=== PATIENT | female | born 1960 | race Caucasian/White ===

== ENCOUNTER 2024-07-05 16:40 | Inpatient (IN) | payer BC, SELFPAY ==
[2024-07-05] VITALS (38 sets, daily range): BP systolic 121–163; BP diastolic 73–99; PULSE 100–124; RESP 17–28; TEMP 35.8–36.9; O2SAT 96–100; BMI 26.3
--- NOTE | ~2024-07-05 | CT_ITS ---
EXAMINATION: CT brain wo con DATE: 07/05/2024 18:01 INDICATION: Altered mental status. TECHNIQUE: Computed tomography (CT) of the head was performed without intravenous contrast. The mA wa s adjusted according to patient size. Iterative reconstruction technique was employed. The dose-lengt h product was 681.00 mGy-cm. COMPARISON: None FINDINGS: There is no intracranial hemorrhage, acute infarction, or abnormal intracranial mass lesion . The ventricles are normal in size. The orbits are normal. The paranasal sinuses are clear. The mast oid air cells are normal. There is cerumen in the external auditory canals. IMPRESSION: 1. Normal brain. Reviewed, dictated and finalized at location A. IMPRESSION: 1. Normal brain.
--- NOTE | ~2024-07-05 | XR_ITS ---
EXAMINATION: XR wrist RT min 3V DATE: 07/05/2024 17:26 INDICATION: Right wrist deformity. TECHNIQUE: 3 views of right wrist were obtained. COMPARISON: None. FINDINGS: There is an old healed fracture of distal radius with malunion. There is an old fracture of ulnar styloid with nonunion. No acute fracture. There is mild osteoarthritis of triscaphe joint and severe osteoarthritis of first carpometacarpal joint. IMPRESSION: 1. No acute fracture. 2. Old healed fracture of distal radius with malunion. 3. Polyarticular osteoarthritis. Reviewed, dictated and finalized at location A.
--- NOTE | ~2024-07-05 | CT_ITS ---
EXAMINATION: CT chest abdomen pelvis wo con DATE: 07/05/2024 20:30 INDICATION: Sepsis. TECHNIQUE: Computed tomography (CT) of the chest, abdomen, and pelvis was performed without intraveno us contrast. Automated exposure control and iterative reconstruction technique were employed. The dos e-length product was 625.49 mGy-cm. COMPARISON: None FINDINGS: CHEST CT: The lungs demonstrate mild atelectasis. There are trace pleural effusions. The heart size is normal. There are coronary artery calcifications. No pericardial effusion. There are bilateral breast implant s. There is mild thoracic spondylosis. ABDOMEN/PELVIS CT: The liver is normal. There are changes of cholecystectomy. There are changes of gastric bypass proced ure. The spleen, pancreas, adrenal glands, and kidneys are normal. There are no dilated loops of nneka l. The appendix is normal. There is a Arriola catheter in expected position. There are no pathologicall y enlarged lymph nodes. There is no free intraperitoneal fluid there is severe lumbar spondylosis.. IMPRESSION: 1. No source of infection identified. Reviewed, dictated and finalized at location A.
--- NOTE | ~2024-07-05 | MR_ITS ---
EXAMINATION: MR MRCP wo/w con/w 3D wo ind DATE: 07/11/2024 11:26 INDICATION: Elevated lipase TECHNIQUE: Magnetic resonance imaging (MRI) of the abdomen was performed without and with 15 mL Multi carline intravenous contrast. Sequences included coronal T2-weighted SS-FSE, coronal T2-weighted FS SS- FSE, coronal T2-weighted FS FIESTA, axial T2-weighted FS FIESTA, axial T2-weighted FIESTA, sagittal T 2-weighted SS-FSE, axial T1-weighted dual-echo FSPGR, axial T2-weighted SS-FSE, axial T1-weighted LAV A, axial T2-weighted STIR FSE. Thick-slab T2-weighted FRFSE-XL images were obtained for magnetic reso nance cholangiopancreatography (MRCP). Rotating maximum intensity projection 3-D reconstructions of t he volumetric data were created by the technologist. Postcontrast sequences included a time course of axial T1-weighted LAVA. COMPARISON: CT dated 07/05/2024 FINDINGS: ABDOMEN MRI: Heart size is normal. No pericardial or pleural effusion. Bilateral breast implants. A couple small T 2 hyperintense nonenhancing cysts along the posterior margin of the spleen the larger measuring 9 mm. Magnetic field artifact such with cholecystectomy clips the gallbladder fossa. Liver is normal. Panc reas, bilateral adrenal glands are normal. There are bilateral T2 hyperintense nonenhancing renal cys ts the largest on the right measuring 1.6 cm. There is a 3.5 x 2.9 cm predominantly solid and heterog eneously enhancing mass at the upper pole of the right kidney consistent with renal cell carcinoma. V isualized portion of the bowels are unremarkable. No pathologically enlarged abdominal or or upper pe lvic lymphadenopathy. Mild thoracolumbar dextrocurvature with mild thoracic and moderate lumbar spond ylosis. T1 hyperintense fat saturating hemangiomas in the T7, T11 and L2 vertebral bodies. ABDOMEN MRCP: Common bile duct is dilated to 13 mm proximally tapering gradually throughout the more distal duct wi th no evident choledocholithiasis in this likely represents sequela prior cholecystectomy. There are few small dilated side branches along the normal caliber main pancreatic duct which likely represents sequela of chronic pancreatitis. IMPRESSION: 1. 3.5 cm heterogeneously enhancing mass at the upper pole the right kidney consistent with renal grant l carcinoma. 2. A few small dilated pancreatic ductal side branches with otherwise normal-appearing pancreas likel y sequela of chronic pancreatitis. No pancreatic or peripancreatic edema to suggest acute pancreatiti s. 3. Mild dilation of the common bile duct without evident choledocholithiasis or obstructing masses li balaji related to prior cholecystectomy. Reviewed, dictated and finalized at location B. IMPRESSION: 1. 3.5 cm heterogeneously enhancing mass at the upper pole the right kidney con sistent with renal cell carcinoma. 2. A few small dilated pancreatic ductal side branches with otherwise normal-ap pearing pancreas likely sequela of chronic pancreatitis. No pancreatic or perip ancreatic edema to suggest acute pancreatitis. 3. Mild dilation of the common bile duct without evident choledocholithiasis or obstructing masses likely related to prior cholecystectomy.
--- NOTE | ~2024-07-05 | XR_ITS ---
EXAMINATION: XR chest 1V portable DATE: 07/05/2024 17:26 INDICATION: Altered mental status. TECHNIQUE: A single frontal view of the chest was obtained. COMPARISON: None. FINDINGS: There is mild atelectasis in left midlung zone. No pleural effusion or pneumothorax. The he art size is normal. IMPRESSION: 1. Mild atelectasis in left midlung zone. Reviewed, dictated and finalized at location A.
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
--- NOTE | 2024-07-05 17:06 | ECG_ITS ---
Test Date: 2024-07-05 17:48:21 Measurements Intervals [place] Rate: 94 P: 69 IN: 141 QRS: 38 QRSD: 97 T: 223 QT: 305 QTc: 383 Interpretive Statements SINUS RHYTHM WITH MARKED SINUS ARRHYTHMIA VENTRICULAR PREMATURE COMPLEX POSSIBLE LEFT ATRIAL ENLARGEMENT ST-T WAVE ABNORMALITY IN INF/LAT LEADS- CONSIDER ISCHEMIA BASELINE ARTIFACT- I, III, AVR, AVL, AVF, V3-V6 ABNORMAL ECG No previous ECG available for comparison Electronically Signed On 07-05-2024 19:25:45 CDT by Marcel Arteaga D.O.
--- NOTE | 2024-07-05 17:06 | PC.NURSE ---
temporal pulse ox. applied due to cyanotic fingers and patient is 100% on RA with this
[2024-07-05 17:18] LABS: Glucose Point of Care 116 mg/dl (65-105)
[2024-07-05 17:35] LABS: Add Urine Microscopic? YES; Appearance Urine Turbid (Clear); Bacteria Urine 4+ /hpf; Bilirubin Urine Negative (Negative); Blood Urine 2+ (Negative); Color Urine Yellow (Yellow); Glucose Urine UA Negative (Negative); Ketones Urine Negative (Negative); Leukocyte Esterase Ur 3+ LEU/UL (Negative); Need Manual Microscopic Reviewed; Nitrate Urine Negative (Negative); Non Pathogenic Casts >20; Protein Urine 1+ mg/dL (Negative); RBC Urine 0-2 /hpf (0-2); Squamous Epithelial Cell Urine Occasional /hpf (Few); WBC Urine >100 /hpf (0-3)
--- NOTE | 2024-07-05 17:41 | ED.AMS ---
HPI - Altered Mental Status General Chief Complaint: Altered Mental Status <SANGITA Villanueva Last Filed: 07/06/24 02:44> Stated Complaint: altered LOC <SANGITA Villanueva Last Filed: 07/06/24 02:44> Time Seen by Provider: 07/05/24 17:06 <SANGITA Villanueva Last Filed: 07/06/24 02:44> Source: patient and EMS <SANGITA Villanueva Last Filed: 07/06/24 02:44> Mode of arrival: EMS <SANGITA Villanueva Last Filed: 07/06/24 02:44> Limitations: altered mental status <SANGITA Villanueva Last Filed: 07/06/24 02:44> History of Present Illness HPI narrative: This is a 64 year old female that presents to the ER for altered mental status. Patient arrives via EMS. Reportedly family member called out of concern. Unknown last well. Patient sitting on the end of her bed confused upon EMS arrival. Soiled in urine and feces. Blood sugar in the 30s. Blood sugar corrected without relief of confusion. Patient able to follow some commands and nod yes and no. Reportedly is usually A&O x 4. <SANGITA Villanueva Last Filed: 07/06/24 02:44> Related Data Home Medications: Home Medications Medication Instructions Recorded Confirmed amlodipine 10 mg tablet 10 mg PO DAILY 03/14/24 07/05/24 ergocalciferol (vitamin D2) 1,250 1,250 mcg PO DAILY 03/14/24 07/05/24 mcg (50,000 unit) capsule gabapentin 300 mg capsule 300 mg PO TID 07/05/24 07/05/24 meloxicam 15 mg tablet 15 mg PO DAILY 07/05/24 07/05/24 metoprolol succinate 100 mg 100 mg PO DAILY 07/05/24 07/05/24 tablet,extended release 24 hr mirtazapine 45 mg tablet 45 mg PO DAILY 07/05/24 07/05/24 topiramate 50 mg tablet 50 mg PO BID 07/05/24 07/05/24 tramadol 50 mg tablet 100 mg PO TID PRN Pain 07/05/24 07/05/24 <Vanessa Sheldon PA-C - Last Filed: 07/06/24 02:44> Allergies/Adverse Reactions: Allergies Allergy/AdvReac Type Severity Reaction Status Date / Time pregabalin [From Lyrica] AdvReac Mild Double Verified 07/06/24 04:59 vision Sulfa (Sulfonamide AdvReac Mild Shortness Verified 07/06/24 04:59 Antibiotics) of breath <Vanessa Sheldon PA-C - Last Filed: 07/06/24 02:44> Review of Systems Review of Systems: ROS unobtainable: Yes unobtainable due to mental status <SANGITA Villanueva Last Filed: 07/06/24 02:44> [facility] Past Medical History Medical History: Medical History (Updated 07/06/24 @ 05:00 by Amber House DO) Chronic low back pain Chronic prescription opiate use Lumbar degenerative disc disease Peripheral neuropathy <Vanessa Sheldon PA-C - Last Filed: 07/06/24 02:44> Surgical History Surgical History: Surgical History (Updated 07/06/24 @ 04:31 by Amber House DO) History of augmentation of both breasts History of laparoscopic cholecystectomy Hx of branchial cleft cyst left side, surgery age 18 Hx of gastric bypass (~2002) Hx of lumbar discectomy 2006 with post op staph infection Labral tear of right hip joint surgical repair Status post abdominoplasty ? Circumferential body lift Trochanteric bursitis of right hip bursa removed in 2007 <Vanessa Sheldon PA-C - Last Filed: 07/06/24 02:44> Family History Family History: Family History (Updated 07/06/24 @ 05:01 by Amber House DO) Father Hypertension AA (alcohol abuse) Mother Diabetes mellitus Carcinoma of colon 70 Breast cancer 60s Sibling Rheumatoid arthritis <SANGITA Villanueva Last Filed: 07/06/24 02:44> Social History Social History: Social History (Updated 07/06/24 @ 04:49 by Amber House DO) Social History: The patient is a retired are in. She worked at [employer] in [place]. She reports that she retired after she had a fall resulting in a wrist fracture. She has been since May 2024. She moved in with her mother and her stepfather to help with her mother's care January or March 2024. She does not have any chi
[2024-07-05 17:52] LABS: Influenza A QL RT-PCR Negative (Negative); Influenza B QL RT-PCR Negative (Negative); RSV RNA, RT-PCR Negative (Negative); SARS-CoV-2 RNA PCR Negative (Negative)
[2024-07-05 18:37] LABS: Acetaminophen < 10 ug/mL (10-30); Ethanol < 10 mg/dL (<10); Salicylate < 1.0 mg/dL (2-20)
[2024-07-05 18:37] LABS: Glucose Point of Care 125 mg/dl (65-105)
[2024-07-05 18:38] LABS: Alanine Aminotransferase 68 U/L (6-35); Albumin Level 4.5 g/dL (3.5-5.1); Alkaline Phosphatase 194 U/L (38-126); Anion Gap 23 mmol/L (4-12); Aspartate Amino Transferase 43 U/L (14-36); Bilirubin,Total 0.7 mg/dL (0.2-1.3); Calcium 9.7 mg/dL (8.4-10.2); Carbon Dioxide 10 mmol/L (22-30); Chloride 119 mmol/L (98-107); Creatine Kinase 872 U/L (30-135); Estimated Glomerular Filt Rate 13; Glucose 139 mg/dL (65-110); Potassium 4.5 mmol/L (3.4-5.0); Sodium 152 mmol/L (137-145)
[2024-07-05 18:45] LABS: CRP 7.3 mg/dL (<1.0)
[2024-07-05 18:56] LABS: Troponin I < 0.012 ng/mL (0.000-0.034)
[2024-07-05] MEDS: SODIUM CHLORIDE 0.9% IV 2,300 ML/1,000 ML BAG 999 ML IV CONT ×3 (19:10→19:55)
[2024-07-05 19:17] LABS: Blood Urea Nitrogen 214 mg/dL (7-17)
--- NOTE | 2024-07-05 19:18 | PC.NURSE ---
phlebotomy is currently in patient's room attempting to get blood after request from ED charge nurse. 4 RN's in ED as well as ED charge nurse attempted to get blood work with no success. patient has had warmed fluids infusing and bear hugger to warm patient and assist with blood draw.
[2024-07-05 19:41] LABS: Amphetamine Screen Urine Negative (Negative); Barbiturate Screen Urine Negative (Negative); Benzodiazepines Screen Urine Negative (Negative); Cannabinoid Screen Urine Negative (Negative); Cocaine Screen Urine Negative (Negative); Methadone Screen Urine Negative (Negative); Opiate Screen Urine Positive (Negative); Phencyclidine Screen Urine Negative (Negative)
[2024-07-05 19:49] LABS: Basophils Percent Auto 0.2 % (0.2-1.2); Eosinophils Absolute Auto 0.1 K/mm3 (0-0.3); Eosinophils Percent Auto 0.4 % (0-4.4); Hematocrit 43.1 % (37.0-47.0); Hemoglobin 14.2 g/dL (12.0-15.0); Immature Granulocyte Absolute 0.17 K/mm3 (0.00-0.031); Lymphocytes Absolute Auto 1.05 K/mm3 (0.9-3.2); Lymphocytes Percent Auto 6.5 % (18.3-44.2); Mean Corpuscular HGB Conc 32.9 g/dl (32-36); Mean Corpuscular Hemoglobin 27.6 pg (26-34); Mean Corpuscular Volume 83.7 fl (80-100); Monocytes Absolute Auto 1.5 K/mm3 (0.1-0.6); Monocytes Percent Auto 9.4 % (2.6-8.5); Neutrophils Absolute Auto 13.4 K/mm3 (1.3-6.7); Neutrophils Percent Auto 82.5 % (45.5-73.1); Nucleated Red Blood Cells Perc 0.1 % (0.0-0.2); Platelet Count Result 364 k/mm3 (150-375); Red Blood Count 5.15 M/mm3 (4.2-5.4); Red Cell Distribution Width 16.9 % (11.5-14.5); White Blood Count 16.3 K/mm3 (4.5-10.0)
[2024-07-05 19:49] LABS: Lipase 2946 U/L (23-300)
[2024-07-05] MEDS: CEFEPIME 2 GM/NS 50 ML 2 GM/50 ML BAG IVPB (19:49)
[2024-07-05 20:00] LABS: INR 1.2; Lactic Acid Reflex 1.6 mmol/L (0.7-2.0); Partial Thromboplastin Time 25.3 Seconds (22.3-36.8); Prothrombin Time 15.5 Seconds (11.1-14.7)
[2024-07-05 20:49] LABS: Thyroid Stimulating Hormone Reflex < 0.015 uIU/mL (0.465-4.68)
--- NOTE | 2024-07-05 20:51 | PC.NURSE ---
patient received a total of 2,300ml of NS 0.9% per sepsis protocol
--- NOTE | 2024-07-05 21:12 | PC.NURSE ---
replaced depends and did debbie-care for patient. they have not had a BM since arrival to ED for stool specimen.
[2024-07-05 22:03] LABS: Free T4 Free Thyroxine Reflex 1.79 ng/dL (0.78-2.19)
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
[2024-07-05 22:53] LABS: Total Triiodothyronine (T3) 0.92 NG/ML (0.97-1.69)
[2024-07-05 22:55] LABS: Glucose Point of Care 109 mg/dl (65-105)
--- NOTE | 2024-07-05 22:55 | PC.NURSE ---
patient had BM in depends but not enough to collect stool specimen. did debbie-care on patient, with skin concern noted to coccyx. it appears as stage one wound that is non-blanchable. removed bear-hugger due to patients core temp. being 98.0
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
[2024-07-05] MEDS: LACTATED RINGERS 1,000 ML 999 ML IV CONT (23:11)
[2024-07-05] MEDS: SODIUM BICARBONATE 8.4% 150 MEQ in DEXTROSE 5% 1,000 ML 950 ML IV CONT (23:19)
--- NOTE | 2024-07-05 23:46 | PC.NURSE ---
Patient confirmed home medication list as documented from external medication records; patient did not confirm dosage, but was able to confirm frequency of identified medications from external medication record.
[2024-07-06] VITALS (18 sets, daily range): BP systolic 150–154; BP diastolic 74–92; PULSE 74–117; RESP 18–22; TEMP 36.5–36.6; O2SAT 96–100; BMI 26.3
[2024-07-06 00:10] LABS: MRSA (PCR) NOT DETECTED (NOT DETECTE)
--- NOTE | 2024-07-06 01:19 | ADMGEN ---
This patient, Violeta Gomez, was admitted to IMU Room 205-02. Patient/family oriented to hospital policies and general routines including ID bracelet, bed and alarms, visiting hours, pain management, procedures, bathroom and other care routines, personal items, smoking policy, room service/diet, and visiting hours. Information on how to activate the Rapid Response Team has been discussed. Patient/Family are encouraged to report perceived risks to care and to ask questions if they do not understand what they are told or what they should do.
[2024-07-06 05:17] LABS: Hematocrit 40.5 % (37.0-47.0); Hemoglobin 12.9 g/dL (12.0-15.0); Mean Corpuscular HGB Conc 31.9 g/dl (32-36); Mean Corpuscular Hemoglobin 27.4 pg (26-34); Mean Corpuscular Volume 86.2 fl (80-100); Mean Platelet Volume 11.9 fl (7.4-10.4); Platelet Count Result 310 k/mm3 (150-375); Red Cell Distribution Width 16.9 % (11.5-14.5); White Blood Count 17.9 K/mm3 (4.5-10.0)
[2024-07-06 05:26] LABS: Hemoglobin A1C 5.6 % (<5.7)
[2024-07-06 05:37] LABS: Alanine Aminotransferase 49 U/L (6-35); Albumin Level 3.6 g/dL (3.5-5.1); Alkaline Phosphatase 149 U/L (38-126); Anion Gap 17 mmol/L (4-12); Aspartate Amino Transferase 32 U/L (14-36); Bilirubin,Total 0.7 mg/dL (0.2-1.3); Calcium 9.1 mg/dL (8.4-10.2); Carbon Dioxide 15 mmol/L (22-30); Chloride 125 mmol/L (98-107); Creatine Kinase 618 U/L (30-135); Estimated CRCL calculation 20 ml/min; Estimated Glomerular Filt Rate 20; Glucose 125 mg/dL (65-110); Magnesium 3.1 mg/dL (1.6-2.3); Phosphorus 4.8 mg/dL (2.5-4.5); Potassium 3.9 mmol/L (3.4-5.0); Sodium 157 mmol/L (137-145)
[2024-07-06 05:54] LABS: Blood Urea Nitrogen 176 mg/dL (7-17); Lipase 6584 U/L (23-300)
[2024-07-06 06:35] LABS: Hepatitis B Surface Antigen Negative (Negative)
[2024-07-06 06:40] LABS: HAV RESULT Negative (Negative); Hepatitis B Core IgM Result Negative (Negative)
[2024-07-06 06:52] LABS: Hepatitis C Virus Antibody Negative (Negative)
[2024-07-06] MEDS: SODIUM BICARBONATE 8.4% 150 MEQ in DEXTROSE 5% 1,000 ML 950 ML IV CONT ×2 (07:00→14:32)
[2024-07-06] MEDS: HEPARIN SODIUM 5,000 UNITS/ML VIAL 5000 UNITS SUB-Q ×2 (09:15→20:26)
[2024-07-06] MEDS: PANTOPRAZOLE SODIUM IV 40 MG VIAL IV PUSH (09:15)
[2024-07-06] MEDS: METOPROLOL SUCCINATE EXT REL 100 MG TABCR PO (09:15)
[2024-07-06] MEDS: SILVER SULFADIAZINE 1% CR 400 GM JAR (*BKC) 1 APPLIC TOPICAL ×2 (09:16→20:26)
[2024-07-06] MEDS: TOPIRAMATE 25 MG TABLET 50 MG PO ×2 (09:16→20:26)
[2024-07-06] MEDS: HYDROcodone/acetaminophen (*CRX) 5-325 MG TABLET 1 TAB PO ×2 (09:27→20:28)
[2024-07-06 12:35] LABS: Creatinine Urine 42.1 mg/dL; Potassium Urine Random 11.6 meq/L; Sodium Urine Random 42 meq/L
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
[2024-07-06 14:05] LABS: Toxigenic C. Diff NEGATIVE (NEGATIVE)
--- NOTE | 2024-07-06 14:35 | PM.CNNEP ---
Assessment and Plan Assessment and plan (1) POP (acute kidney injury): Code(s): N17.9 - Acute kidney failure, unspecified Status: Acute Assessment and Plan: presumed normal kidney function/creatinine at baseline creatinine on admission was 3.6...down to 2.4mg/dl this AM CT imaging without evidence of obstructive uropathy history seems consistent with volume depletion/dehydration hold NSAIDs, EMILY-I and diuretics continue IVF hydration follow serial labs and UOP (2) Hypernatremia: Code(s): E87.0 - Hyperosmolality and hypernatremia Status: Acute Assessment and Plan: likely due to significant free water deficit encourage free water intake as tolerated depending on trend of labs, may need to adjust IVFs to compensate follow trend of repeat sodium levels (3) Sepsis: Qualifiers: Sepsis type: sepsis due to unspecified organism Sepsis acute organ dysfunction status: with acute organ dysfunction Severe sepsis acute organ dysfunction type: acute renal failure Acute renal failure type: unspecified Severe sepsis shock status: without septic shock Qualified Code(s): A41.9 - Sepsis, unspecified organism; R65.20 - Severe sepsis without septic shock; N17.9 - Acute kidney failure, unspecified Code(s): A41.9 - Sepsis, unspecified organism Status: Acute Assessment and Plan: as manifested by altered mntal status, tachycardia, tachypnea, leukocytosis and POP on presentation source not clear follow culture data follow hemodynamics on empiric antibiotics (4) Metabolic acidosis: Code(s): E87.20 - Acidosis, unspecified Status: Acute Assessment and Plan: most likely due to POP/ARF on bicarb IVFs to compensate follow trend of CO2 levels (5) Altered mental status: Code(s): R41.82 - Altered mental status, unspecified Status: Acute Assessment and Plan: likely secondary to a combination of severe uremia, medication effect exacerbated by acute renal failure, hypoglycemia and sepsis continues current treatment follow mentation (6) Elevated lipase: Code(s): R74.8 - Abnormal levels of other serum enzymes Status: Acute Assessment and Plan: as noted in the ER however, no evidence of pancreatitis by CT scan follow trend with IVFs I will continue to follow the patient with you while she remains hospitalized and make further recommendations as deemed necessary. Thank you for allowing me to participate in the care of this patient. History of Present Illness Reason for Consult Consult date: 07/06/24 Reason for consult: acute renal failure and hypernatremia Chief Complaint Chief complaint: Acute Kidney Injury/Acute UTI/[place] Encephalopathy History of Present Illness Narrative: A great deal the information that I have obtained is from review of the electronic medical record as well as discussion with the physician/ nurses involved in the patient's care as the patient has intermittent confusion making details of the events that led to her presentation to the emergency room and subsequent admission difficult for her to elaborate. The patient is a 64-year-old female with a past medical history as outlined below who presented to [facility] Emergency room via EMS for further evaluation of altered mental status. Apparently, the patient has been weak for last several days. Her family apparently called her outpatient r programmer to inform them that she would not be coming for her outpatient screening colonoscopy because of the severity of her weakness. They encouraged the family to call EMS given the description of how profound her fatigue/ weakness was. EMS was called and on their arrival, it was noted that the patient was somewhat confused in conjunction with her profound weakness. She was found to be hypoglycemic with a glucose of 30 and received an amp of D 10 with improvement in h
--- NOTE | 2024-07-06 14:35 | P.CONNP_ITS ---
Assessment and Plan Assessment and plan (1) POP (acute kidney injury): Code(s): N17.9 - Acute kidney failure, unspecified Status: Acute Assessment and Plan: * presumed normal kidney function/creatinine at baseline * creatinine on admission was 3.6...down to 2.4mg/dl this AM * CT imaging without evidence of obstructive uropathy * history seems consistent with volume depletion/dehydration * hold NSAIDs, EMILY-I and diuretics * continue IVF hydration * follow serial labs and UOP (2) Hypernatremia: Code(s): E87.0 - Hyperosmolality and hypernatremia Status: Acute Assessment and Plan: * likely due to significant free water deficit * encourage free water intake as tolerated * depending on trend of labs, may need to adjust IVFs to compensate * follow trend of repeat sodium levels (3) Sepsis: Qualifiers: Sepsis type: sepsis due to unspecified organism Sepsis acute organ dysfunction status: with acute organ dysfunction Severe sepsis acute organ dysfunction type: acute renal failure Acute renal failure type: unspecified Severe sepsis shock status: without septic shock Qualified Code(s): A41.9 - Sepsis, unspecified organism; R65.20 - Severe sepsis without septic shock; N17.9 - Acute kidney failure, unspecified Code(s): A41.9 - Sepsis, unspecified organism Status: Acute Assessment and Plan: * as manifested by altered mntal status, tachycardia, tachypnea, leukocytosis and POP on presentation * source not clear * follow culture data * follow hemodynamics * on empiric antibiotics (4) Metabolic acidosis: Code(s): E87.20 - Acidosis, unspecified Status: Acute Assessment and Plan: * most likely due to POP/ARF * on bicarb IVFs to compensate * follow trend of CO2 levels (5) Altered mental status: Code(s): R41.82 - Altered mental status, unspecified Status: Acute Assessment and Plan: * likely secondary to a combination of severe uremia, medication effect exacerbated by acute renal failure, hypoglycemia and sepsis * continues current treatment * follow mentation (6) Elevated lipase: Code(s): R74.8 - Abnormal levels of other serum enzymes Status: Acute Assessment and Plan: * as noted in the ER * however, no evidence of pancreatitis by CT scan * follow trend with IVFs I will continue to follow the patient with you while she remains hospitalized and make further recommendations as deemed necessary. Thank you for allowing me to participate in the care of this patient. History of Present Illness Reason for Consult Consult date: 07/06/24 Reason for consult: acute renal failure and hypernatremia Chief Complaint Chief complaint: Acute Kidney Injury/Acute UTI/[place] Encephalopathy History of Present Illness Narrative: A great deal the information that I have obtained is from review of the electronic medical record as well as discussion with the physician/ nurses involved in the patient's care as the patient has intermittent confusion making details of the events that led to her presentation to the emergency room and subsequent admission difficult for her to elaborate. The patient is a 64-year-old female with a past medical history as outlined below who presented to [facility] Emergency room via EMS for further evaluation of altered mental status. Apparently, the patient has been weak for last several days. Her family apparently called her outpatient military technician to inform them that she would not be coming for her outpa
[2024-07-06 14:51] LABS: Anion Gap 10 mmol/L (4-12); Calcium 8.8 mg/dL (8.4-10.2); Carbon Dioxide 26 mmol/L (22-30); Chloride 119 mmol/L (98-107); Estimated CRCL calculation 26 ml/min; Estimated Glomerular Filt Rate 29; Glucose 155 mg/dL (65-110); Hemoglobin A1C 5.7 % (<5.7); Potassium 3.3 mmol/L (3.4-5.0); Sodium 155 mmol/L (137-145)
[2024-07-06 14:53] LABS: Blood Urea Nitrogen 140 mg/dL (7-17)
[2024-07-06 17:07] LABS: Glucose Point of Care 146 mg/dl (65-105)
[2024-07-06 20:00] LABS: Glucose Point of Care 134 mg/dl (65-105)
[2024-07-06 20:11] LABS: Anion Gap 9 mmol/L (4-12); Calcium 8.8 mg/dL (8.4-10.2); Carbon Dioxide 30 mmol/L (22-30); Chloride 117 mmol/L (98-107); Estimated CRCL calculation 30 ml/min; Estimated Glomerular Filt Rate 33; Glucose 136 mg/dL (65-110); Potassium 3.4 mmol/L (3.4-5.0); Sodium 156 mmol/L (137-145)
[2024-07-06 20:12] LABS: Blood Urea Nitrogen 124 mg/dL (7-17)
[2024-07-07] VITALS (19 sets, daily range): BP systolic 154–172; BP diastolic 80–99; PULSE 72–99; RESP 16–24; TEMP 36.4–36.7; O2SAT 94–100
[2024-07-07 05:56] LABS: Basophils Absolute Auto 0.1 K/mm3 (0.0-0.1); Basophils Percent Auto 0.3 % (0.2-1.2); Eosinophils Absolute Auto 0.3 K/mm3 (0-0.3); Eosinophils Percent Auto 1.8 % (0-4.4); Hematocrit 37.3 % (37.0-47.0); Immature Granulocyte Absolute 0.27 K/mm3 (0.00-0.031); Immature Granulocyte Percent A 1.8 % (0-0.5); Lymphocytes Percent Auto 17.8 % (18.3-44.2); Mean Corpuscular HGB Conc 32.2 g/dl (32-36); Mean Corpuscular Hemoglobin 27.8 pg (26-34); Mean Corpuscular Volume 86.5 fl (80-100); Mean Platelet Volume 11.5 fl (7.4-10.4); Monocytes Absolute Auto 1.1 K/mm3 (0.1-0.6); Monocytes Percent Auto 7.7 % (2.6-8.5); Neutrophils Absolute Auto 10.3 K/mm3 (1.3-6.7); Neutrophils Percent Auto 70.6 % (45.5-73.1); Platelet Count Result 286 k/mm3 (150-375); Red Blood Count 4.31 M/mm3 (4.2-5.4); White Blood Count 14.6 K/mm3 (4.5-10.0)
[2024-07-07 06:07] LABS: Alanine Aminotransferase 43 U/L (6-35); Albumin Level 3.4 g/dL (3.5-5.1); Alkaline Phosphatase 139 U/L (38-126); Anion Gap 11 mmol/L (4-12); Aspartate Amino Transferase 34 U/L (14-36); Bilirubin,Total 0.4 mg/dL (0.2-1.3); Blood Urea Nitrogen 97 mg/dL (7-17); Carbon Dioxide 29 mmol/L (22-30); Chloride 117 mmol/L (98-107); Creatine Kinase 361 U/L (30-135); Estimated CRCL calculation 34 ml/min; Estimated Glomerular Filt Rate 38; Glucose 119 mg/dL (65-110); Potassium 3.2 mmol/L (3.4-5.0); Sodium 157 mmol/L (137-145)
[2024-07-07] MEDS: DEXTROSE 5% 1,000 ML 1,000 ML 125 ML IV CONT (06:19)
[2024-07-07 07:02] LABS: Thyroid Stimulating Hormone Reflex 0.031 uIU/mL (0.465-4.68)
[2024-07-07 07:39] LABS: Glucose Point of Care 128 mg/dl (65-105)
--- NOTE | 2024-07-07 07:57 | PC.NURSE ---
Patient requesting to call father so she can leave. Reviewed discharge process to patient and updated her on name of her current Hospital physician. Patient verbalized understanding.
--- NOTE | 2024-07-07 08:04 | P.CONGI_ITS ---
I, Florin Retana MD, have provided a substantive portion of the care of this patient and discussed the patient with my Nurse Practitioner. I have reviewed any new relevant radiographic and laboratory results including medications. I agree with her documentation as noted below.?I personally performed the medical decision making and much of the history and exam for this encounter. she has h/o chronic pain sd on meds, gastric bypass. She was supposed to have her first colonoscopy recently- did not even take the prep and was found confused and on the ground. Here noted uremia with bun 200, creat 3, also hypernatremia and hypoglycemia ~30. This has been corrected now with significant improvement of renal function and normalization of low glucose. She had diarrhea and also chronic nausea, never had scopes. Also admitted with diagnosis of possible sepsis (CT head, abd/pelvis no acute findings), Plan is to continue supportive care, hydration, repleting lytes and improving renal function. Will defer egd/colonoscopy when she is better, probably as outpatient. Assessment and Plan Assessment and plan (1) Diarrhea: Qualifiers: Diarrhea type: unspecified type Qualified Code(s): R19.7 - Diarrhea, unspecified Code(s): R19.7 - Diarrhea, unspecified Status: Acute (2) Elevated lipase: Code(s): R74.8 - Abnormal levels of other serum enzymes Status: Acute (3) Hypernatremia: Code(s): E87.0 - Hyperosmolality and hypernatremia Status: Acute (4) Hypokalemia: Code(s): E87.6 - Hypokalemia Status: Acute (5) Chronic prescription opiate use: Code(s): Z79.891 - bed bug exterminator (current) use of opiate analgesic Status: Acute (6) Elevated LFTs: Code(s): R79.89 - Other specified abnormal findings of blood chemistry Status: Acute (7) Family history of colon cancer: Code(s): Z80.0 - Family history of malignant neoplasm of digestive organs Status: Acute Plan 1) Diarrhea /Family history of colon cancer: Per patient she has never had a colonoscopy. Per patient mother diagnosed with colon cancer in her mid 70's. Patient was scheduled for an outpatient screening colonoscopy yesterday but this was cancelled due to hospitalization. According to the patient she is having daily bowel movements at home that are formed and non urgent. She also states she has not had a bowel movement since admission but per chart she has had 3 bowel movements since admission. Reliability of subjective information unknown given admission diagnosis of metabolic encephalopathy. History of gastric bypass and cholecystectomy. No abnormal GI findings noted on CT. Celiac panel was negative. * Will order additional stool studies to rule out infectious etiology and fecal calprotectin * Patient on antibiotics for sepsis and UTI * given comorbidities, acute illness, and abnormal electrolytes, no indication for emergent endoscopic evaluation at this time, we will plan to reschedule outpatient colonoscopy 2) Elevated Lipase: Lipase increased since admission 2946-->6584. CT shows normal-appearing pancreas. No indication of biliary obstruction or ductal dilation. Bilirubin normal and alkaline phosphatase mildly elevated at 139. Patient denies any abdominal pain. Tolerating p.o. intake without difficulty or pain. * Etiology likely non GI related such as renal failure, infection, rhabdo, medication induced or opioid use * Continue monitoring labs, if levels do not start to improve may consider MRCP 3) Nausea: According to the patient she has frequent nausea. Etiology unclear.
--- NOTE | 2024-07-07 08:04 | WPDGICN ---
Assessment and Plan Assessment and plan (1) Diarrhea: Qualifiers: Diarrhea type: unspecified type Qualified Code(s): R19.7 - Diarrhea, unspecified Code(s): R19.7 - Diarrhea, unspecified Status: Acute (2) Elevated lipase: Code(s): R74.8 - Abnormal levels of other serum enzymes Status: Acute (3) Hypernatremia: Code(s): E87.0 - Hyperosmolality and hypernatremia Status: Acute (4) Hypokalemia: Code(s): E87.6 - Hypokalemia Status: Acute (5) Chronic prescription opiate use: Code(s): Z79.891 - snf (current) use of opiate analgesic Status: Acute (6) Elevated LFTs: Code(s): R79.89 - Other specified abnormal findings of blood chemistry Status: Acute (7) Family history of colon cancer: Code(s): Z80.0 - Family history of malignant neoplasm of digestive organs Status: Acute Plan 1) Diarrhea /Family history of colon cancer: Per patient she has never had a colonoscopy. Per patient mother diagnosed with colon cancer in her mid 70's. Patient was scheduled for an outpatient screening colonoscopy yesterday but this was cancelled due to hospitalization. According to the patient she is having daily bowel movements at home that are formed and non urgent. She also states she has not had a bowel movement since admission but per chart she has had 3 bowel movements since admission. Reliability of subjective information unknown given admission diagnosis of metabolic encephalopathy. History of gastric bypass and cholecystectomy. No abnormal GI findings noted on CT. Celiac panel was negative. Will order additional stool studies to rule out infectious etiology and fecal calprotectin Patient on antibiotics for sepsis and UTI given comorbidities, acute illness, and abnormal electrolytes, no indication for emergent endoscopic evaluation at this time, we will plan to reschedule outpatient colonoscopy 2) Elevated Lipase: Lipase increased since admission 2946-->6584. CT shows normal-appearing pancreas. No indication of biliary obstruction or ductal dilation. Bilirubin normal and alkaline phosphatase mildly elevated at 139. Patient denies any abdominal pain. Tolerating p.o. intake without difficulty or pain. Etiology likely non GI related such as renal failure, infection, rhabdo, medication induced or opioid use Continue monitoring labs, if levels do not start to improve may consider MRCP 3) Nausea: According to the patient she has frequent nausea. Etiology unclear. She states she has been taking antacids regularly for the nausea but does not have any symptom improvement. She denies any reflux symptoms. Continue supportive care with antiemetics May consider outpatient EGD if symptoms persist Continue PPI Supportive care with antiemetics 4) Elevated LFT's: Total bilirubin and AST normal. Mildly elevated ALT at 43 and alkaline phosphatase 139. Normal appearing liver on imaging. No LFTs available prior to admission to evaluate for elevation being chronic in nature. Patient denies any alcohol use or known history of liver disease. Hepatitis panel negative. Continue to monitor 5) Hypernatremia/hypokalemia: Labs today show sodium 157 and potassium 3.2. Primary care team to continue monitoring and correct Thank you very much for allowing me to share in the care of this patient. This report may have been done utilizing a voice recognition system. Attempts have been made to correct errors. However, there may be uncorrected grammatical, spelling, and recognition errors present. GI Consult Note Consult date/time: 07/07/24 08:04 Reason for consult: Diarrhea and elevated Lipase HPI: This is a pleasant 64 year old female with a past medical surgical history of gastric bypass in 2002, migraines, hypertension, chronic pain, carotid endarterectomy, peripheral neuropathy, abdominoplasty, and cholecystectomy she presented to the ER
[2024-07-07] MEDS: METOPROLOL SUCCINATE EXT REL 100 MG TABCR PO (08:44)
[2024-07-07] MEDS: PANTOPRAZOLE SODIUM IV 40 MG VIAL IV PUSH (08:44)
[2024-07-07] MEDS: POTASSIUM CHLORIDE 20 MEQ ER TABLET 40 MEQ PO (08:45)
[2024-07-07] MEDS: TOPIRAMATE 25 MG TABLET 50 MG PO ×2 (08:45→20:46)
[2024-07-07] MEDS: HEPARIN SODIUM 5,000 UNITS/ML VIAL 5000 UNITS SUB-Q ×2 (08:45→20:46)
[2024-07-07] MEDS: SILVER SULFADIAZINE 1% CR 400 GM JAR (*BKC) 1 APPLIC TOPICAL ×2 (09:30→20:51)
[2024-07-07 11:34] LABS: Total Triiodothyronine (T3) 0.83 NG/ML (0.97-1.69)
[2024-07-07 11:42] LABS: Glucose Point of Care 110 mg/dl (65-105)
--- NOTE | 2024-07-07 12:14 | P.PNNP_ITS ---
Progress Note: A&P Assessment and Plan (1) POP (acute kidney injury): Code(s): N17.9 - Acute kidney failure, unspecified Status: Acute Assessment and Plan: * improvement noted * presumed normal kidney function/creatinine at baseline * creatinine on admission was 3.6...down to 2.4mg/dl this AM * CT imaging without evidence of obstructive uropathy * history seems consistent with volume depletion/dehydration * hold NSAIDs, EMILY-I and diuretics * continue IVF hydration * follow serial labs and UOP (2) Hypernatremia: Code(s): E87.0 - Hyperosmolality and hypernatremia Status: Acute Assessment and Plan: * likely due to significant free water deficit * encourage free water intake as tolerated * adjusted IVFs to compensate * follow trend of repeat sodium levels (3) Sepsis: Qualifiers: Sepsis type: sepsis due to unspecified organism Sepsis acute organ d ysfunction status: with acute organ dysfunction Severe sepsis acute organ dysfunction type: acute renal failure Acute renal failure type: unspecified Severe sepsis shock status: without septic shock Qualified Code(s): A41.9 - Sepsis, unspecified organism; R65.20 - Severe sepsis without septic shock; N17.9 - Acute kidney failure, unspecified Code(s): A41.9 - Sepsis, unspecified organism Status: Acute Assessment and Plan: * as manifested by altered mntal status, tachycardia, tachypnea, leukocytosis and POP on presentation * source not clear * follow culture data * follow hemodynamics * on empiric antibiotics (4) Metabolic acidosis: Code(s): E87.20 - Acidosis, unspecified Status: Acute Assessment and Plan: * corrected * most likely due to POP/ARF * off bicarb IVFs at this time * follow trend of CO2 levels (5) Altered mental status: Code(s): R41.82 - Altered mental status, unspecified Status: Acute Assessment and Plan: * slow improvement * likely secondary to a combination of severe uremia, medication effect exacerbated by acute renal failure, hypoglycemia and sepsis * continues current treatment * follow mentation (6) Elevated lipase: Code(s): R74.8 - Abnormal levels of other serum enzymes Status: Acute Assessment and Plan: * as noted in the ER * however, no evidence of pancreatitis by CT scan * follow trend with IVFs Will continue to follow. Subjective Date/time seen: 07/07/24 12:14 Interval history: Follow-up for acute kidney injury/acute renal failure and hypernatremia. No apparent distress voiced at the time of my visit; renal function/creatinine steadily improving with IVF resuscitation; sodium remalns elevated but also improving with adjustment in IVFs and encouraged water intake; seen by GI earlier this morning; no other acute complaints to report. Exam Narrative: General: WD/WN female in NAD Heart: normal S1 and S2; no rub Lungs: clear to auscultation Abdomen: soft, nontender, nondistended, positive bowel sounds Extremities: no cyanosis or clubbing; no edema Skin: warm and dry Objective Data Vital Signs Vital Signs: Vital Signs Temp Pulse Resp BP Pulse Ox O2 Del Method 07/07/24 12:00 86 97 Room Air 07/07/24 11:56 97.8 F 84 20 172/99 H 100 07/07/24 11:08 Room Air 07/07/24 10:00 78 07/07/24 08:00 85
--- NOTE | 2024-07-07 12:14 | PM.PNNEP ---
Progress Note: A&P Assessment and Plan (1) POP (acute kidney injury): Code(s): N17.9 - Acute kidney failure, unspecified Status: Acute Assessment and Plan: improvement noted presumed normal kidney function/creatinine at baseline creatinine on admission was 3.6...down to 2.4mg/dl this AM CT imaging without evidence of obstructive uropathy history seems consistent with volume depletion/dehydration hold NSAIDs, EMILY-I and diuretics continue IVF hydration follow serial labs and UOP (2) Hypernatremia: Code(s): E87.0 - Hyperosmolality and hypernatremia Status: Acute Assessment and Plan: likely due to significant free water deficit encourage free water intake as tolerated adjusted IVFs to compensate follow trend of repeat sodium levels (3) Sepsis: Qualifiers: Sepsis type: sepsis due to unspecified organism Sepsis acute organ dysfunction status: with acute organ dysfunction Severe sepsis acute organ dysfunction type: acute renal failure Acute renal failure type: unspecified Severe sepsis shock status: without septic shock Qualified Code(s): A41.9 - Sepsis, unspecified organism; R65.20 - Severe sepsis without septic shock; N17.9 - Acute kidney failure, unspecified Code(s): A41.9 - Sepsis, unspecified organism Status: Acute Assessment and Plan: as manifested by altered mntal status, tachycardia, tachypnea, leukocytosis and POP on presentation source not clear follow culture data follow hemodynamics on empiric antibiotics (4) Metabolic acidosis: Code(s): E87.20 - Acidosis, unspecified Status: Acute Assessment and Plan: corrected most likely due to POP/ARF off bicarb IVFs at this time follow trend of CO2 levels (5) Altered mental status: Code(s): R41.82 - Altered mental status, unspecified Status: Acute Assessment and Plan: slow improvement likely secondary to a combination of severe uremia, medication effect exacerbated by acute renal failure, hypoglycemia and sepsis continues current treatment follow mentation (6) Elevated lipase: Code(s): R74.8 - Abnormal levels of other serum enzymes Status: Acute Assessment and Plan: as noted in the ER however, no evidence of pancreatitis by CT scan follow trend with IVFs Will continue to follow. Subjective Date/time seen: 07/07/24 12:14 Interval history: Follow-up for acute kidney injury/acute renal failure and hypernatremia. No apparent distress voiced at the time of my visit; renal function/creatinine steadily improving with IVF resuscitation; sodium remalns elevated but also improving with adjustment in IVFs and encouraged water intake; seen by GI earlier this morning; no other acute complaints to report. Exam Narrative: General: WD/WN female in NAD Heart: normal S1 and S2; no rub Lungs: clear to auscultation Abdomen: soft, nontender, nondistended, positive bowel sounds Extremities: no cyanosis or clubbing; no edema Skin: warm and dry Objective Data Vital Signs Vital Signs: Vital Signs Temp Pulse Resp BP Pulse Ox O2 Del Method 07/07/24 12:00 86 97 Room Air 07/07/24 11:56 97.8 F 84 20 172/99 H 100 07/07/24 11:08 Room Air 07/07/24 10:00 78 07/07/24 08:00 85 07/07/24 08:00 98 Room Air 07/07/24 08:44 93 07/07/24 08:00 97.5 F L 77 24 H 169/93 H 98 07/07/24 06:00 75 07/07/24 05:14 97.5 F L 99 18 154/83 H 99 07/07/24 04:15 83 16 94 Room Air 07/07/24 04:00 83 07/07/24 02:00 88 07/07/24 00:50 97.7 F 82 16 154/83 H 94 07/07/24 00:00 92 07/07/24 00:15 88 20 97 Room Air 07/06/24 22:00 88 07/06/24 20:00 84 07/06/24 20:15 85 20 97 Room Air 07/06/24 20:02 97.8 F 85 20 154/81 H 97 Intake/Output Intake/Output: Intake & Output 07/04/24 07/05/24
[2024-07-07 13:12] LABS: Anion Gap 7 mmol/L (4-12); Blood Urea Nitrogen 80 mg/dL (7-17); Calcium 9.1 mg/dL (8.4-10.2); Carbon Dioxide 29 mmol/L (22-30); Chloride 117 mmol/L (98-107); Estimated CRCL calculation 36 ml/min; Estimated Glomerular Filt Rate 42; Glucose 157 mg/dL (65-110); Magnesium 2.1 mg/dL (1.6-2.3); Potassium 3.8 mmol/L (3.4-5.0); Sodium 153 mmol/L (137-145)
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
--- NOTE | 2024-07-07 15:03 | PC.NURSE ---
Patient transferred to room 204 due to increased fall risks. Patient unable to understand Call Before You Fall . Patient attempting to get out of bed to urinate with cabrera cahteter in place. hairspring vibrator aware of transfer. Family at bedside updated on plan of care.
[2024-07-07] MEDS: metroNIDAZOLE 500 MG TABLET PO ×2 (15:20→22:48)
[2024-07-07] MEDS: DEXTROSE 5% 1,000 ML 1,000 ML 100 ML IV CONT (15:27)
[2024-07-07 16:32] LABS: Glucose Point of Care 85 mg/dl (65-105)
[2024-07-07] MEDS: ACETAMINOPHEN 500 MG TABLET PO (17:13)
[2024-07-07 18:34] LABS: Anion Gap 7 mmol/L (4-12); Blood Urea Nitrogen 70 mg/dL (7-17); Calcium 8.9 mg/dL (8.4-10.2); Carbon Dioxide 25 mmol/L (22-30); Chloride 115 mmol/L (98-107); Estimated CRCL calculation 42 ml/min; Estimated Glomerular Filt Rate 50; Glucose 125 mg/dL (65-110); Potassium 3.2 mmol/L (3.4-5.0); Sodium 147 mmol/L (137-145)
[2024-07-07] MEDS: SODIUM CHLORIDE 0.9% IV 500 ML 50 ML IV CONT (18:57)
[2024-07-07] MEDS: ALPRAZolam (*CRX) 0.125 MG TABLET PO (20:47)
[2024-07-07 21:39] LABS: Glucose Point of Care 109 mg/dl (65-105)
[2024-07-08] VITALS (14 sets, daily range): BP systolic 143–163; BP diastolic 72–85; PULSE 69–101; RESP 16–20; TEMP 36.2–36.6; O2SAT 95–100
[2024-07-08 05:30] LABS: Hematocrit 37.6 % (37.0-47.0); Hemoglobin 11.7 g/dL (12.0-15.0); Mean Corpuscular HGB Conc 31.1 g/dl (32-36); Mean Corpuscular Hemoglobin 27.3 pg (26-34); Mean Corpuscular Volume 87.6 fl (80-100); Mean Platelet Volume 11.6 fl (7.4-10.4); Platelet Count Result 273 k/mm3 (150-375); Red Blood Count 4.29 M/mm3 (4.2-5.4); Red Cell Distribution Width 15.9 % (11.5-14.5)
[2024-07-08 05:45] LABS: Anion Gap 10 mmol/L (4-12); Blood Urea Nitrogen 49 mg/dL (7-17); Calcium 9.5 mg/dL (8.4-10.2); Carbon Dioxide 23 mmol/L (22-30); Chloride 116 mmol/L (98-107); Estimated CRCL calculation 46 ml/min; Estimated Glomerular Filt Rate 56; Glucose 93 mg/dL (65-110); Potassium 3.1 mmol/L (3.4-5.0); Sodium 149 mmol/L (137-145)
[2024-07-08] MEDS: HYDROcodone/acetaminophen (*CRX) 5-325 MG TABLET 1 TAB PO ×2 (05:47→20:30)
[2024-07-08] MEDS: metroNIDAZOLE 500 MG TABLET PO ×3 (05:47→21:33)
[2024-07-08 06:02] LABS: Lipase 7559 U/L (23-300)
[2024-07-08 06:50] LABS: Glucose Point of Care 94 mg/dl (65-105)
[2024-07-08] MEDS: DEXTROSE 5% IN WATER 500 ML 100 ML IV CONT (06:55)
[2024-07-08] MEDS: METOPROLOL SUCCINATE EXT REL 100 MG TABCR PO (10:09)
[2024-07-08] MEDS: TOPIRAMATE 25 MG TABLET 50 MG PO ×2 (10:09→20:29)
[2024-07-08] MEDS: PANTOPRAZOLE SOD SESQUIHYDRATE 20 MG TAB PO (10:09)
[2024-07-08] MEDS: HEPARIN SODIUM 5,000 UNITS/ML VIAL 5000 UNITS SUB-Q ×2 (10:10→20:29)
[2024-07-08] MEDS: SILVER SULFADIAZINE 1% CR 400 GM JAR (*BKC) 1 APPLIC TOPICAL ×2 (10:10→20:35)
--- NOTE | 2024-07-08 10:45 | P.PNNP_ITS ---
Progress Note: A&P Assessment and Plan (1) POP (acute kidney injury): Code(s): N17.9 - Acute kidney failure, unspecified Status: Acute Assessment and Plan: * improvement noted * presumed normal kidney function/creatinine at baseline * creatinine on admission was 3.6...down to 2.4mg/dl this AM * CT imaging without evidence of obstructive uropathy * history seems consistent with volume depletion/dehydration * hold NSAIDs, EMILY-I and diuretics * continue IVF hydration * follow serial labs and UOP (2) Hypernatremia: Code(s): E87.0 - Hyperosmolality and hypernatremia Status: Acute Assessment and Plan: * likely due to significant free water deficit * encourage free water intake as tolerated * adjusted IVFs to compensate * follow trend of repeat sodium levels (3) Sepsis: Qualifiers: Sepsis type: sepsis due to unspecified organism Sepsis acute organ d ysfunction status: with acute organ dysfunction Severe sepsis acute organ dysfunction type: acute renal failure Acute renal failure type: unspecified Severe sepsis shock status: without septic shock Qualified Code(s): A41.9 - Sepsis, unspecified organism; R65.20 - Severe sepsis without septic shock; N17.9 - Acute kidney failure, unspecified Code(s): A41.9 - Sepsis, unspecified organism Status: Acute Assessment and Plan: * as manifested by altered mntal status, tachycardia, tachypnea, leukocytosis and POP on presentation * source not clear * follow culture data * follow hemodynamics * on empiric antibiotics (4) Metabolic acidosis: Code(s): E87.20 - Acidosis, unspecified Status: Acute Assessment and Plan: * corrected * most likely due to POP/ARF * off bicarb IVFs at this time * follow trend of CO2 levels (5) Altered mental status: Code(s): R41.82 - Altered mental status, unspecified Status: Acute Assessment and Plan: * slow improvement * likely secondary to a combination of severe uremia, medication effect exacerbated by acute renal failure, hypoglycemia and sepsis * continues current treatment * follow mentation (6) Elevated lipase: Code(s): R74.8 - Abnormal levels of other serum enzymes Status: Acute Assessment and Plan: * as noted in the ER * however, no evidence of pancreatitis by CT scan * follow trend with IVFs Will continue to follow. Subjective Date/time seen: 07/08/24 10:45 Interval history: Follow-up for acute kidney injury/acute renal failure and hypernatremia. Still with intermittent confusion per nursing and staff; renal function/crea tinine continues to improve if not normalize; still with hypernatremia but stable if not improving; no apparent distress voiced at the time of my visit. Exam Narrative: General: WD/WN female in NAD Heart: normal S1 and S2; no rub Lungs: clear to auscultation Abdomen: soft, nontender, nondistended, positive bowel sounds Extremities: no cyanosis or clubbing; no edema Skin: warm and intact Objective Data Vital Signs Vital Signs: Vital Signs Temp Pulse Resp BP Pulse Ox O2 Del Method 07/08/24 10:30 97.6 F 84 18 143/85 H 100 07/08/24 09:09 100 07/08/24 08:00 98 F 88 20 149/81 H 95 07/08/24 04:00 97.1 F L 82 16 152/79 H 100 07/08/24 06:00 82 07/08/24 04:00
--- NOTE | 2024-07-08 10:45 | PM.PNNEP ---
Progress Note: A&P Assessment and Plan (1) POP (acute kidney injury): Code(s): N17.9 - Acute kidney failure, unspecified Status: Acute Assessment and Plan: improvement noted presumed normal kidney function/creatinine at baseline creatinine on admission was 3.6...down to 2.4mg/dl this AM CT imaging without evidence of obstructive uropathy history seems consistent with volume depletion/dehydration hold NSAIDs, EMILY-I and diuretics continue IVF hydration follow serial labs and UOP (2) Hypernatremia: Code(s): E87.0 - Hyperosmolality and hypernatremia Status: Acute Assessment and Plan: likely due to significant free water deficit encourage free water intake as tolerated adjusted IVFs to compensate follow trend of repeat sodium levels (3) Sepsis: Qualifiers: Sepsis type: sepsis due to unspecified organism Sepsis acute organ dysfunction status: with acute organ dysfunction Severe sepsis acute organ dysfunction type: acute renal failure Acute renal failure type: unspecified Severe sepsis shock status: without septic shock Qualified Code(s): A41.9 - Sepsis, unspecified organism; R65.20 - Severe sepsis without septic shock; N17.9 - Acute kidney failure, unspecified Code(s): A41.9 - Sepsis, unspecified organism Status: Acute Assessment and Plan: as manifested by altered mntal status, tachycardia, tachypnea, leukocytosis and POP on presentation source not clear follow culture data follow hemodynamics on empiric antibiotics (4) Metabolic acidosis: Code(s): E87.20 - Acidosis, unspecified Status: Acute Assessment and Plan: corrected most likely due to POP/ARF off bicarb IVFs at this time follow trend of CO2 levels (5) Altered mental status: Code(s): R41.82 - Altered mental status, unspecified Status: Acute Assessment and Plan: slow improvement likely secondary to a combination of severe uremia, medication effect exacerbated by acute renal failure, hypoglycemia and sepsis continues current treatment follow mentation (6) Elevated lipase: Code(s): R74.8 - Abnormal levels of other serum enzymes Status: Acute Assessment and Plan: as noted in the ER however, no evidence of pancreatitis by CT scan follow trend with IVFs Will continue to follow. Subjective Date/time seen: 07/08/24 10:45 Interval history: Follow-up for acute kidney injury/acute renal failure and hypernatremia. Still with intermittent confusion per nursing and staff; renal function/creatinine continues to improve if not normalize; still with hypernatremia but stable if not improving; no apparent distress voiced at the time of my visit. Exam Narrative: General: WD/WN female in NAD Heart: normal S1 and S2; no rub Lungs: clear to auscultation Abdomen: soft, nontender, nondistended, positive bowel sounds Extremities: no cyanosis or clubbing; no edema Skin: warm and intact Objective Data Vital Signs Vital Signs: Vital Signs Temp Pulse Resp BP Pulse Ox O2 Del Method 07/08/24 10:30 97.6 F 84 18 143/85 H 100 07/08/24 09:09 100 07/08/24 08:00 98 F 88 20 149/81 H 95 07/08/24 04:00 97.1 F L 82 16 152/79 H 100 07/08/24 06:00 82 07/08/24 04:00 86 07/08/24 04:20 72 16 95 Room Air 07/08/24 02:00 72 07/08/24 00:00 70 07/08/24 00:18 97.7 F 76 16 163/82 H 95 07/08/24 00:00 82 16 100 Room Air 07/07/24 22:00 82 07/07/24 20:00 72 07/07/24 20:19 97.7 F 78 16 156/80 H 100 07/07/24 20:00 80 16 98 Room Air Intake/Output Intake/Output: Intake & Output 07/05/24 07/06/24 07/07/24 07/08/24 23:59 23:59 23:59 23:59 Intake Total 1548.6 2490 1640 1570 Output Total 1775 2425 1350 Balance 1548.6 715 785 220 Meds/Results Medications: Active Medications Generic Name Dose Rou
[2024-07-08] MEDS: POTASSIUM CHLORIDE 20 MEQ ER TABLET 40 MEQ PO (13:21)
[2024-07-08 14:38] LABS: Glucose Point of Care 112 mg/dl (65-105)
--- NOTE | 2024-07-08 15:53 | WPDGIPROGNO ---
Progress Note: A&P Assessment and Plan (1) Acute metabolic encephalopathy: Code(s): G93.41 - Metabolic encephalopathy Status: Acute Assessment and Plan: this has improved, probably multifactorial (uremia, use of pain killers, hypoglycemia, etc) (2) Diarrhea: Qualifiers: Diarrhea type: unspecified type Qualified Code(s): R19.7 - Diarrhea, unspecified Code(s): R19.7 - Diarrhea, unspecified Status: Acute Assessment and Plan: better we can do colonoscopy as outpatient (3) Acute kidney failure: Qualifiers: Acute renal failure type: unspecified Qualified Code(s): N17.9 - Acute kidney failure, unspecified Code(s): N17.9 - Acute kidney failure, unspecified Status: Acute Assessment and Plan: this is improving (4) Chronic prescription opiate use: Code(s): Z79.891 - [facility] (current) use of opiate analgesic Status: Acute (5) Hypernatremia: Code(s): E87.0 - Hyperosmolality and hypernatremia Status: Acute (6) Elevated lipase: Code(s): R74.8 - Abnormal levels of other serum enzymes Status: Acute Assessment and Plan: ct no obvious pancreatitis, no abdominal pain monitor eating (7) Hypoglycemia: Code(s): E16.2 - Hypoglycemia, unspecified Status: Acute Subjective Date/time seen: 07/08/24 15:53 Interval history: slowly feeling better, denies any abdominal pain or nausea Review of Systems Review of Systems: All systems reviewed & are unremarkable except as noted in HPI and below Exam Const: General: in distress Orientation/consciousness: oriented to person HENMT: Head: normal to inspection Eyes: General: appearance normal, both eyes and all related structures Neck: Neck: supple Resp: Effort & Inspection: no respiratory distress Auscultation: no rhonchi and no wheezes Cardio: Rate: regular rate Rhythm: regular rhythm GI: Inspection: normal to inspection GI Palp: Yes Soft to palpation and No Tenderness to palpation present (GI) Auscultation: normal bowel sounds Skin: General skin exam: no rashes or lesions noted Neuro: Speech: normal speech Motor exam (neuro): 5/5 motor strength present throughout Extrem: General: normal to inspection Psych: Attitude: not belligerent Objective Data Vital Signs Vital Signs: Vital Signs - 24 hr 07/07/24 16:00 07/07/24 16:00 07/07/24 16:00 Temperature 98.0 F Pulse Rate 78 76 Respiratory Rate 16 Blood Pressure 158/88 H Pulse Oximetry 100 98 Oxygen Delivery Room Air 07/07/24 18:00 07/07/24 20:00 07/07/24 20:19 Temperature 97.7 F Pulse Rate 80 80 78 Respiratory Rate 16 16 Blood Pressure 156/80 H Pulse Oximetry 98 100 Oxygen Delivery Room Air 07/07/24 20:00 07/07/24 22:00 07/08/24 00:00 Temperature Pulse Rate 72 82 82 Respiratory Rate 16 Blood Pressure Pulse Oximetry 100 Oxygen Delivery Room Air 07/08/24 00:18 07/08/24 00:00 07/08/24 02:00 Temperature 97.7 F Pulse Rate 76 70 72 Respiratory Rate 16 Blood Pressure 163/82 H Pulse Oximetry 95 Oxygen Delivery 07/08/24 04:20 07/08/24 04:00 07/08/24 06:00 Temperature Pulse Rate 72 86 82 Respiratory Rate 16 Blood Pressure Pulse Oximetry 95 Oxygen Delivery Room Air 07/08/24 04:00 07/08/24 08:00 07/08/24 10:09 Temperature 97.1 F L 98 F Pulse Rate 82 88 100 Respiratory Rate 16 20 Blood Pressure 152/79 H 149/81 H Pulse Oximetry 100 95 Oxygen Delivery 07/08/24 11:03 07/08/24 12:00 07/08/24 12:00 Temperature 97.6 F Pulse Rate 84 84 Respiratory Rate 18 18 Blood Pressure 143/85 H Pulse Oximetry 100 100 Oxygen Delivery Room Air Room Air 07/08/24 08:00 07/08/24 10:00 07/08/24 12:00 Temperature Pulse Rate 101 H 93 94 Respiratory Rate Blood Pressure Pulse Oximetry Oxygen Delivery 07/08/24 14:00 Temperature Pulse Rate 78 Respiratory Rate B
[2024-07-08 16:53] LABS: Glucose Point of Care 96 mg/dl (65-105)
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
--- NOTE | 2024-07-08 18:55 | ADMGEN ---
This patient, Violeta Gomez, was admitted to 3 [facility] Surg Room 317-01 @ 0595. Patient/family oriented to hospital policies and general routines including ID bracelet, bed and alarms, visiting hours, pain management, procedures, bathroom and other care routines, personal items, smoking policy, room service/diet, and visiting hours. Information on how to activate the Rapid Response Team has been discussed. Patient/Family are encouraged to report perceived risks to care and to ask questions if they do not understand what they are told or what they should do.
[2024-07-08 21:10] LABS: Glucose Point of Care 75 mg/dl (65-105)
[2024-07-08 21:39] LABS: Glucose Point of Care 103 mg/dl (65-105)
[2024-07-08] MEDS: ALPRAZolam (*CRX) 0.125 MG TABLET PO (21:41)
[2024-07-09] VITALS (9 sets, daily range): BP systolic 135–156; BP diastolic 80–84; PULSE 66–84; RESP 12–18; TEMP 36.3–36.6; O2SAT 98–100
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
[2024-07-09 05:54] LABS: Basophils Absolute Auto 0.1 K/mm3 (0.0-0.1); Basophils Percent Auto 0.4 % (0.2-1.2); Hematocrit 35.6 % (37.0-47.0); Hemoglobin 11.2 g/dL (12.0-15.0); Immature Granulocyte Absolute 0.25 K/mm3 (0.00-0.031); Immature Granulocyte Percent A 1.5 % (0-0.5); Lymphocytes Absolute Auto 2.79 K/mm3 (0.9-3.2); Lymphocytes Percent Auto 16.6 % (18.3-44.2); Mean Corpuscular HGB Conc 31.5 g/dl (32-36); Mean Corpuscular Hemoglobin 27.3 pg (26-34); Mean Corpuscular Volume 86.8 fl (80-100); Monocytes Absolute Auto 0.7 K/mm3 (0.1-0.6); Monocytes Percent Auto 4.2 % (2.6-8.5); Neutrophils Percent Auto 71.3 % (45.5-73.1); Platelet Count Result 249 k/mm3 (150-375); Red Cell Distribution Width 15.1 % (11.5-14.5); White Blood Count 16.8 K/mm3 (4.5-10.0)
[2024-07-09 06:15] LABS: Alanine Aminotransferase 39 U/L (6-35); Albumin Level 3.4 g/dL (3.5-5.1); Alkaline Phosphatase 125 U/L (38-126); Anion Gap 12 mmol/L (4-12); Aspartate Amino Transferase 37 U/L (14-36); Bilirubin,Total 0.3 mg/dL (0.2-1.3); Blood Urea Nitrogen 29 mg/dL (7-17); Carbon Dioxide 17 mmol/L (22-30); Chloride 114 mmol/L (98-107); Estimated CRCL calculation 51 ml/min; Estimated Glomerular Filt Rate > 60; Glucose 102 mg/dL (65-110); Magnesium 1.5 mg/dL (1.6-2.3); Potassium 3.6 mmol/L (3.4-5.0); Sodium 143 mmol/L (137-145)
[2024-07-09] MEDS: metroNIDAZOLE 500 MG TABLET PO ×3 (06:25→20:48)
[2024-07-09 08:10] LABS: Glucose Point of Care 86 mg/dl (65-105)
[2024-07-09] MEDS: HEPARIN SODIUM 5,000 UNITS/ML VIAL 5000 UNITS SUB-Q ×2 (08:23→20:48)
[2024-07-09] MEDS: HYDROcodone/acetaminophen (*CRX) 5-325 MG TABLET 1 TAB PO ×2 (08:24→18:24)
[2024-07-09] MEDS: TOPIRAMATE 25 MG TABLET 50 MG PO ×2 (08:27→20:48)
[2024-07-09] MEDS: PANTOPRAZOLE SOD SESQUIHYDRATE 20 MG TAB PO (08:27)
[2024-07-09] MEDS: METOPROLOL SUCCINATE EXT REL 100 MG TABCR PO (08:27)
[2024-07-09] MEDS: POTASSIUM CHLORIDE 20 MEQ ER TABLET 40 MEQ PO (08:35)
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
[2024-07-09] MEDS: MAGNESIUM SULF 2 GM/WATER 50ML 2 GM/50 ML BAG IVPB (10:23)
[2024-07-09] MEDS: SILVER SULFADIAZINE 1% CR 400 GM JAR (*BKC) 1 APPLIC TOPICAL ×2 (10:28→20:49)
--- NOTE | 2024-07-09 11:01 | P.PNNP_ITS ---
Progress Note: A&P Assessment and Plan (1) POP (acute kidney injury): Code(s): N17.9 - Acute kidney failure, unspecified Status: Acute Assessment and Plan: * resolved * presumed normal kidney function/creatinine at baseline * creatinine on admission was 3.6...down to 2.4mg/dl this AM * CT imaging without evidence of obstructive uropathy * history seems consistent with volume depletion/dehydration * hold NSAIDs, EMILY-I and diuretics * continue IVF hydration PRN * follow serial labs and UOP (2) Hypernatremia: Code(s): E87.0 - Hyperosmolality and hypernatremia Status: Acute Assessment and Plan: * resolved * likely due to significant free water deficit * encourage free water intake as tolerated * adjusted IVFs to compensate * follow trend of repeat sodium levels (3) Sepsis: Qualifiers: Sepsis type: sepsis due to unspecified organism Sepsis acute organ dysfunction status: with acute organ dysfunction Severe sepsis acute organ dysfunction type: acute renal failure Acute renal failure type: unspecified Severe sepsis shock status: without septic shock Qualified Code(s): A41.9 - Sepsis, unspecified organism; R65.20 - Severe sepsis without septic shock; N17.9 - Acute kidney failure, unspecified Code(s): A41.9 - Sepsis, unspecified organism Status: Acute Assessment and Plan: * as manifested by altered mntal status, tachycardia, tachypnea, leukocytosis and POP on presentation * source not clear * follow culture data * follow hemodynamics * on empiric antibiotics (4) Metabolic acidosis: Code(s): E87.20 - Acidosis, unspecified Status: Acute Assessment and Plan: * aa issues again * initially secondary to POP/ARF * suspect may currently be secondary to Topamax use (carbonic anhydrase inhibitors?) * off bicarb IVFs at this time * follow trend of CO2 levels * consider adding sodium bicarbonate versus reducing Topamax (5) Altered mental status: Code(s): R41.82 - Altered mental status, unspecified Status: Acute Assessment and Plan: * slow improvement * likely secondary to a combination of severe uremia, medication effect exacerbated by acute renal failure, hypoglycemia and sepsis * continues current treatment * follow mentation (6) Elevated lipase: Code(s): R74.8 - Abnormal levels of other serum enzymes Status: Acute Assessment and Plan: * as noted in the ER * however, no evidence of pancreatitis by CT scan * follow trend with IVFs Not much else to add -- will continue to follow from a distance. Subjective Date/time seen: 07/09/24 11:01 Interval history: Follow-up for acute kidney injury/acute renal failure and hypernatremia. Renal function/creatinine as well as sodium level has normalized with current therapy/interventions to date; no apparnt distress voiced at this time; tamara johnson appears to be doing better as well; no issues/events overnight or earlier this morning. Exam Narrative: General: WD/WN female in NAD Heart: normal S1 and S2; no rub Lungs: clear to auscultation Abdomen: soft, nontender, nondistended, positive bowel sounds Extremities: no cyanosis or clubbing; no edema Skin: no rash or nodules Objective Data Vital Signs Vital Signs: Vital Signs Temp Pulse Resp BP Pulse Ox O2 Del Method 07/09/24 11
--- NOTE | 2024-07-09 11:01 | PM.PNNEP ---
Progress Note: A&P Assessment and Plan (1) POP (acute kidney injury): Code(s): N17.9 - Acute kidney failure, unspecified Status: Acute Assessment and Plan: resolved presumed normal kidney function/creatinine at baseline creatinine on admission was 3.6...down to 2.4mg/dl this AM CT imaging without evidence of obstructive uropathy history seems consistent with volume depletion/dehydration hold NSAIDs, EMILY-I and diuretics continue IVF hydration PRN follow serial labs and UOP (2) Hypernatremia: Code(s): E87.0 - Hyperosmolality and hypernatremia Status: Acute Assessment and Plan: resolved likely due to significant free water deficit encourage free water intake as tolerated adjusted IVFs to compensate follow trend of repeat sodium levels (3) Sepsis: Qualifiers: Sepsis type: sepsis due to unspecified organism Sepsis acute organ dysfunction status: with acute organ dysfunction Severe sepsis acute organ dysfunction type: acute renal failure Acute renal failure type: unspecified Severe sepsis shock status: without septic shock Qualified Code(s): A41.9 - Sepsis, unspecified organism; R65.20 - Severe sepsis without septic shock; N17.9 - Acute kidney failure, unspecified Code(s): A41.9 - Sepsis, unspecified organism Status: Acute Assessment and Plan: as manifested by altered mntal status, tachycardia, tachypnea, leukocytosis and POP on presentation source not clear follow culture data follow hemodynamics on empiric antibiotics (4) Metabolic acidosis: Code(s): E87.20 - Acidosis, unspecified Status: Acute Assessment and Plan: aa issues again initially secondary to POP/ARF suspect may currently be secondary to Topamax use (carbonic anhydrase inhibitors?) off bicarb IVFs at this time follow trend of CO2 levels consider adding sodium bicarbonate versus reducing Topamax (5) Altered mental status: Code(s): R41.82 - Altered mental status, unspecified Status: Acute Assessment and Plan: slow improvement likely secondary to a combination of severe uremia, medication effect exacerbated by acute renal failure, hypoglycemia and sepsis continues current treatment follow mentation (6) Elevated lipase: Code(s): R74.8 - Abnormal levels of other serum enzymes Status: Acute Assessment and Plan: as noted in the ER however, no evidence of pancreatitis by CT scan follow trend with IVFs Not much else to add -- will continue to follow from a distance. Subjective Date/time seen: 07/09/24 11:01 Interval history: Follow-up for acute kidney injury/acute renal failure and hypernatremia. Renal function/creatinine as well as sodium level has normalized with current therapy/interventions to date; no apparnt distress voiced at this time; mentation appears to be doing better as well; no issues/events overnight or earlier this morning. Exam Narrative: General: WD/WN female in NAD Heart: normal S1 and S2; no rub Lungs: clear to auscultation Abdomen: soft, nontender, nondistended, positive bowel sounds Extremities: no cyanosis or clubbing; no edema Skin: no rash or nodules Objective Data Vital Signs Vital Signs: Vital Signs Temp Pulse Resp BP Pulse Ox O2 Del Method 07/09/24 11:00 67 07/09/24 08:00 84 07/09/24 08:00 Room Air 07/09/24 06:00 97.9 F 76 18 156/80 H 98 07/09/24 04:00 73 07/09/24 00:00 80 07/08/24 21:53 97.1 F L 76 16 149/72 H 100 07/08/24 18:00 76 Intake/Output Intake/Output: Intake & Output 07/06/24 07/07/24 07/08/24 07/09/24 23:59 23:59 23:59 23:59 Intake Total 2490 1640 1620 818 Output Total 1775 2425 1350 875 Balance 715 785 270 -57 Meds/Results Medications: Active Medications Generic Name Dose Route Start Last Admin Trade Name Freq PRN Reason Stop Dose Admin
[2024-07-09 12:12] LABS: Glucose Point of Care 89 mg/dl (65-105)
[2024-07-09 12:52] LABS: Lipase 5819 U/L (23-300)
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
[2024-07-09 17:03] LABS: Glucose Point of Care 86 mg/dl (65-105)
[2024-07-09] MEDS: SODIUM BICARBONATE TAB 650 MG TABLET PO (18:00)
[2024-07-09 20:39] LABS: Glucose Point of Care 87 mg/dl (65-105)
[2024-07-10] VITALS (10 sets, daily range): BP systolic 137–143; BP diastolic 69–90; PULSE 55–91; RESP 18–20; TEMP 36.4–36.8; O2SAT 98–100
[2024-07-10] MEDS: ALPRAZolam (*CRX) 0.125 MG TABLET PO ×3 (02:22→21:36)
[2024-07-10] MEDS: HYDROcodone/acetaminophen (*CRX) 5-325 MG TABLET 1 TAB PO ×4 (02:22→21:36)
[2024-07-10] MEDS: metroNIDAZOLE 500 MG TABLET PO ×3 (05:50→21:36)
[2024-07-10 06:17] LABS: Basophils Absolute Auto 0.1 K/mm3 (0.0-0.1); Basophils Percent Auto 0.4 % (0.2-1.2); Eosinophils Percent Auto 6.8 % (0-4.4); Hematocrit 31.4 % (37.0-47.0); Hemoglobin 10.1 g/dL (12.0-15.0); Immature Granulocyte Absolute 0.11 K/mm3 (0.00-0.031); Immature Granulocyte Percent A 0.8 % (0-0.5); Lymphocytes Absolute Auto 2.34 K/mm3 (0.9-3.2); Lymphocytes Percent Auto 16.5 % (18.3-44.2); Mean Corpuscular HGB Conc 32.2 g/dl (32-36); Mean Platelet Volume 11.9 fl (7.4-10.4); Monocytes Absolute Auto 0.4 K/mm3 (0.1-0.6); Monocytes Percent Auto 2.8 % (2.6-8.5); Neutrophils Absolute Auto 10.3 K/mm3 (1.3-6.7); Neutrophils Percent Auto 72.7 % (45.5-73.1); Platelet Count Result 218 k/mm3 (150-375); Red Blood Count 3.61 M/mm3 (4.2-5.4); Red Cell Distribution Width 15.3 % (11.5-14.5); White Blood Count 14.2 K/mm3 (4.5-10.0)
[2024-07-10 06:29] LABS: Alanine Aminotransferase 36 U/L (6-35); Alkaline Phosphatase 109 U/L (38-126); Anion Gap 10 mmol/L (4-12); Aspartate Amino Transferase 34 U/L (14-36); Bilirubin,Total 0.3 mg/dL (0.2-1.3); Blood Urea Nitrogen 21 mg/dL (7-17); Carbon Dioxide 16 mmol/L (22-30); Chloride 114 mmol/L (98-107); Estimated CRCL calculation 64 ml/min; Estimated Glomerular Filt Rate > 60; Glucose 88 mg/dL (65-110); Magnesium 1.8 mg/dL (1.6-2.3); Potassium 3.7 mmol/L (3.4-5.0); Sodium 140 mmol/L (137-145)
[2024-07-10 06:30] LABS: Lipase 2436 U/L (23-300)
[2024-07-10 07:52] LABS: Glucose Point of Care 90 mg/dl (65-105)
[2024-07-10] MEDS: SODIUM BICARBONATE TAB 650 MG TABLET PO ×2 (08:58→16:02)
[2024-07-10] MEDS: HEPARIN SODIUM 5,000 UNITS/ML VIAL 5000 UNITS SUB-Q ×2 (08:58→21:35)
[2024-07-10] MEDS: TOPIRAMATE 25 MG TABLET 50 MG PO ×2 (08:59→21:36)
[2024-07-10] MEDS: METOPROLOL SUCCINATE EXT REL 100 MG TABCR PO (08:59)
[2024-07-10] MEDS: PANTOPRAZOLE SOD SESQUIHYDRATE 20 MG TAB PO (08:59)
[2024-07-10] MEDS: SILVER SULFADIAZINE 1% CR 400 GM JAR (*BKC) 1 APPLIC TOPICAL ×2 (09:00→21:36)
[2024-07-10 11:46] LABS: Glucose Point of Care 79 mg/dl (65-105)
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
--- NOTE | 2024-07-10 13:11 | WPDGIPROGNO ---
Progress Note: A&P Assessment and Plan (1) Acute metabolic encephalopathy: Code(s): G93.41 - Metabolic encephalopathy Status: Acute Assessment and Plan: resolved probably was multifactorial (uremia, use of pain killers, hypoglycemia, etc) (2) Diarrhea: Qualifiers: Diarrhea type: unspecified type Qualified Code(s): R19.7 - Diarrhea, unspecified Code(s): R19.7 - Diarrhea, unspecified Status: Acute Assessment and Plan: no more issues we will set up colonoscopy as outpatient will follow only as needed (3) Acute kidney failure: Qualifiers: Acute renal failure type: unspecified Qualified Code(s): N17.9 - Acute kidney failure, unspecified Code(s): N17.9 - Acute kidney failure, unspecified Status: Acute Assessment and Plan: resolved marked uremia on admission (4) Hypernatremia: Code(s): E87.0 - Hyperosmolality and hypernatremia Status: Acute Assessment and Plan: na back to normal value (5) Elevated lipase: Code(s): R74.8 - Abnormal levels of other serum enzymes Status: Acute Assessment and Plan: ct no obvious pancreatitis, no abdominal pain mrcp pending tolerating diet Subjective Date/time seen: 07/10/24 13:11 Interval history: no events, doing ok and eating Review of Systems Review of Systems: All systems reviewed & are unremarkable except as noted in HPI and below Exam Const: General: comfortable and no acute distress HENMT: Face/Nose/Sinus: Normal nares present Eyes: General: appearance normal, both eyes and all related structures Neck: Neck: no JVD Resp: Auscultation: clear to auscultation bilaterally Cardio: Rate: regular rate Rhythm: regular rhythm GI: Inspection: non-distended GI Palp: Yes Soft to palpation and No Tenderness to palpation present (GI) Auscultation: normal bowel sounds Skin: General skin exam: normal color Neuro: Speech: normal speech Motor exam (neuro): 5/5 motor strength present throughout Extrem: General: normal to inspection Psych: Mental Status: mental status grossly normal Objective Data Vital Signs Vital Signs: Vital Signs - 24 hr 07/09/24 15:51 07/09/24 16:00 07/09/24 20:00 Temperature 97.3 F L Pulse Rate 66 66 75 Respiratory Rate 16 Blood Pressure 135/81 Pulse Oximetry 98 Oxygen Delivery 07/09/24 21:16 07/09/24 20:45 07/10/24 00:00 Temperature 97.5 F L Pulse Rate 66 55 L Respiratory Rate 12 Blood Pressure 150/84 H Pulse Oximetry 100 Oxygen Delivery Room Air 07/10/24 04:00 07/10/24 06:00 07/10/24 08:59 Temperature 98.3 F Pulse Rate 64 75 76 Respiratory Rate 20 Blood Pressure 140/90 Pulse Oximetry 98 Oxygen Delivery 07/10/24 08:00 07/10/24 08:00 Temperature Pulse Rate 91 Respiratory Rate Blood Pressure Pulse Oximetry Oxygen Delivery Room Air Intake/Output Intake/Output: Intake & Output 07/07/24 07/08/24 07/09/24 07/10/24 23:59 23:59 23:59 23:59 Intake Total 1640 1620 868 715 Output Total 2425 1350 875 Balance -785 270 -7 715 Meds/Results Medications: Active Medications Generic Name Dose Route Start Last Admin Trade Name Freq PRN Reason Stop Dose Admin Acetaminophen 500 mg 07/06/24 04:28 07/07/24 17:13 Acetaminophen 500 Mg Tablet PO 500 mg Q4H PRN Administration Mild Pain (1-3) or Fever Hydrocodone Bitart/Acetaminophen 1 tab 07/06/24 04:28 07/10/24 08:59 Hydrocodone/Acetaminophen (*Crx) 5-325 Mg Tablet PO 1 tab Q6H PRN Administration Pain Rated 4-10 Alprazolam 0.125 mg 07/07/24 14:27 07/10/24 02:22 Alprazolam (*Crx) 0.125 Mg Tablet PO 0.125 mg TID PRN Administration Anxiety Dextrose 12.5 gm 07/06/24 04:08 Dextrose 50% 25 Gm/50 Ml Syringe IV PUSH PRN PRN Hypoglycemia Protocol Glucagon 1 mg 07/06/24 04:08 Glucagon For Inj 1 Mg Vial IM PRN PRN Hypoglyc
[2024-07-10 16:26] LABS: Glucose Point of Care 125 mg/dl (65-105)
[2024-07-10 21:03] LABS: Glucose Point of Care 114 mg/dl (65-105)
[2024-07-11] VITALS: PULSE 54
[2024-07-11 04:00] VITALS: PULSE 79
[2024-07-11 04:50] VITALS: BP 149/79; PULSE 80; RESP 18; TEMP 36.7; O2SAT 98
[2024-07-11] MEDS: metroNIDAZOLE 500 MG TABLET PO (05:07)
[2024-07-11] MEDS: ALPRAZolam (*CRX) 0.125 MG TABLET PO ×2 (05:07→09:40)
[2024-07-11] MEDS: HYDROcodone/acetaminophen (*CRX) 5-325 MG TABLET 1 TAB PO (05:07)
[2024-07-11 07:42] LABS: Basophils Absolute Auto 0.1 K/mm3 (0.0-0.1); Basophils Percent Auto 0.4 % (0.2-1.2); Eosinophils Absolute Auto 0.6 K/mm3 (0-0.3); Eosinophils Percent Auto 3.9 % (0-4.4); Hematocrit 34.8 % (37.0-47.0); Hemoglobin 10.9 g/dL (12.0-15.0); Immature Granulocyte Absolute 0.08 K/mm3 (0.00-0.031); Immature Granulocyte Percent A 0.6 % (0-0.5); Lymphocytes Absolute Auto 1.85 K/mm3 (0.9-3.2); Lymphocytes Percent Auto 13.2 % (18.3-44.2); Mean Corpuscular HGB Conc 31.3 g/dl (32-36); Mean Corpuscular Hemoglobin 27.6 pg (26-34); Mean Corpuscular Volume 88.1 fl (80-100); Mean Platelet Volume 11.6 fl (7.4-10.4); Monocytes Absolute Auto 0.5 K/mm3 (0.1-0.6); Monocytes Percent Auto 3.4 % (2.6-8.5); Neutrophils Percent Auto 78.5 % (45.5-73.1); Platelet Count Result 196 k/mm3 (150-375); Red Blood Count 3.95 M/mm3 (4.2-5.4); Red Cell Distribution Width 14.7 % (11.5-14.5)
[2024-07-11 07:48] LABS: Glucose Point of Care 93 mg/dl (65-105)
[2024-07-11 08:21] LABS: Alanine Aminotransferase 40 U/L (6-35); Albumin Level 3.3 g/dL (3.5-5.1); Alkaline Phosphatase 110 U/L (38-126); Anion Gap 13 mmol/L (4-12); Aspartate Amino Transferase 45 U/L (14-36); Bilirubin,Total 0.3 mg/dL (0.2-1.3); Blood Urea Nitrogen 14 mg/dL (7-17); Carbon Dioxide 16 mmol/L (22-30); Chloride 111 mmol/L (98-107); Estimated CRCL calculation 73 ml/min; Estimated Glomerular Filt Rate > 60; Glucose 107 mg/dL (65-110); Magnesium 1.6 mg/dL (1.6-2.3); Potassium 3.4 mmol/L (3.4-5.0); Sodium 140 mmol/L (137-145)
[2024-07-11 08:36] LABS: Lipase 2060 U/L (23-300)
[2024-07-11] MEDS: SODIUM BICARBONATE TAB 650 MG TABLET PO (09:40)
[2024-07-11] MEDS: TOPIRAMATE 25 MG TABLET 50 MG PO (09:40)
[2024-07-11] MEDS: ACETAMINOPHEN 500 MG TABLET PO (09:40)
[2024-07-11] MEDS: PANTOPRAZOLE SOD SESQUIHYDRATE 20 MG TAB PO (09:41)
[2024-07-11 09:42] VITALS: PULSE 79
[2024-07-11] MEDS: METOPROLOL SUCCINATE EXT REL 100 MG TABCR PO (09:42)
[2024-07-11] MEDS: HEPARIN SODIUM 5,000 UNITS/ML VIAL 5000 UNITS SUB-Q (09:42)
[2024-07-11] MEDS: SILVER SULFADIAZINE 1% CR 400 GM JAR (*BKC) 1 APPLIC TOPICAL (09:43)
[2024-07-11] MEDS: LORazepam INJ (*CRX) 2 MG/ML VIAL 0.5 MG IV PUSH (11:10)
--- NOTE | 2024-07-11 11:10 | PCNFU ---
Nutrition Follow-Up Complete: Increased nutrient needs related to altered skin integrity as evidenced by noted DTPI to sacrum and hip Goal:PO intake 75% of meals and supplement Pt meeting goal, continue with same goal. Pt current nutrition is Heart healthy, minced and moist level 5, BRUCE BID, Ensure compact BID. Nutrition recommendation: continue with current plan of care Last recorded weight is 74.8 kg. Bowel Motility: +BM 07/09 Labs Reviewed: Hgb:10.9, HCT:34.8 Meds Noted: protonix Skin: R hip DTPI, DTPI to sacrum Additional Notes: pt continues on a heart healthy minced and moist level 5, intake 50-75%. Pt is on BRUCE BID and Ensure compact BID. Agree with orders, encourage po intake. Monitor intake, wt, labs, skin. Follow up in 7 days.
[2024-07-11 11:48] LABS: Glucose Point of Care 94 mg/dl (65-105)
[2024-07-11 12:00] VITALS: PULSE 119
[2024-07-11 14:00] VITALS: BP 111/58; PULSE 75; RESP 18; TEMP 36.5; O2SAT 100
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
[2024-07-11 16:27] LABS: Glucose Point of Care 86 mg/dl (65-105)
[2024-07-13 18:49] LABS: Calprotectin, Stool 75 mcg/g
== END 2024-07-11 16:45 | disposition home or self-care (01) | DRG 871 ==
LOC: ANHED 22:49 → ANHIMU 23:15 → ANH3MEDSUR 07-08 18:50
PROVIDERS: Family Medicine; Internal Medicine Nephrology; Nurse Practitioner Family; Physician Assistant; Admitting Provider Internal Medicine; Emergency Provider Physician Assistant; PCP Nurse Practitioner Family; Visit Provider Internal Medicine
DX: A41.9 Sepsis, unspecified organism (principal); G93.41 Metabolic encephalopathy; N39.0 Urinary tract infection, site not specified; N17.9 Acute kidney failure, unspecified; E87.0 Hyperosmolality and hypernatremia; R65.20 Severe sepsis without septic shock; L89.151 Pressure ulcer of sacral region, stage 1; T24.211A Burn of second degree of right thigh, initial encounter; E16.2 Hypoglycemia, unspecified; R19.7 Diarrhea, unspecified; R11.0 Nausea; R74.8 Abnormal levels of other serum enzymes; N28.89 Other specified disorders of kidney and ureter; M54.50 Low back pain, unspecified; G89.29 Other chronic pain; G62.9 Polyneuropathy, unspecified; Z20.822 Contact with and (suspected) exposure to COVID-19; F32.A Depression, unspecified; Z80.0 Family history of malignant neoplasm of digestive organs; Z98.84 Bariatric surgery status; Z79.891 Long term (current) use of opiate analgesic
CPT/HCPCS: 36415; 70450; 71045; 71250; 73110; 74176; 74183; 76376; 80048; 80053; 80074; 80307; 81001; 82550; 82570; 82948; 83036; 83605; 83690; 83735; 83993; 84100; 84133; 84300; 84439; 84443; 84480; 84484; 85025; 85027; 85610; 85730; 86140; 87040; 87045; 87077; 87086; 87088; 87181; 87427; 87449; 87493; 87637; 87641; 93005; 96361; 96365; 97110; 97116; 97161; 97166; 97530; 97535; 99285; A9270; A9577; J0692; J0696; J1644; J2060; J2470; J3475; J7030; J7040; J7060; J7070; J7120

== ENCOUNTER 2025-09-22 11:23 | Outpatient (CLI) | payer BC, SELFPAY ==
--- NOTE | ~2025-09-22 | XR_ITS ---
EXAMINATION: XR hip BI 2V w AP pelvis, 09/22/2025 11:44 [facility] CLAIM CLERK HISTORY: Sacrolilitis COMPARISON: No comparisons available. Findings: No acute fracture or malalignment. Moderate to severe bilateral degenerative changes Soft tissues unremarkable. Impression: No acute fracture or malalignment. Reviewed, dictated and finalized at location P. [facility] CLAIM CLERK Impression: No acute fracture or malalignment.
== END 2025-09-22 11:24 | disposition home or self-care (01) ==
DX: M16.0 Bilateral primary osteoarthritis of hip (principal); M46.1 Sacroiliitis, not elsewhere classified
CPT/HCPCS: 73521